=== PATIENT | female | born 1990 | race Caucasian/White ===

== ENCOUNTER 2021-01-20 06:04 | Inpatient (IN) | payer OTHER ==
[~2021-01-20] VITALS: Ht 160 cm; Wt 102.5 kg
--- NOTE | 2021-01-20 14:44 | PR ---
[facility] [address], [place] [address] Signed Progress Notes IP Datetime Report Generated by CPN: 01/20/2021 14:44 PROGRESS NOTES: [id number] Impression: Reassuring Heart Rate Procedures: Artificial ROM; Sterile Vag Exam Plan: Continue Present Management VITAL SIGNS: [id number] Vital Signs: Reviewed VS Notable Details: HTN--not severe EXAM: [id number] Dilatation: 4.0 Effacement: 75 Station: -2 Contractions: irregular MEMBRANES: [id number] Comments: Not much progress. If AROM does not increase her contractions, she may need pit augment. FETUS A: [id number] FHR Baseline: 130 Variability: Moderate 6-25bpm Accelerations: 15X15 Decelerations: None FHR Category: Category I Presentation: Vertex Comments on Fetus A: No evidence of metabolic acidosis FETUS B: [id number] Signing Physician: Eugenie Reyna MD Copies: ~ *Electronically Signed* 01/20/21 1444 EUGENIE REYNA MD PATIENT NAME: APRIL MINAYA PROGRESS NOTE DATE OF : 89 PHYSICIAN: EUGENIE REYNA MD RPT #: [id number] REPORT IS CONFIDENTIAL AND NOT TO BE RELEASED WITHOUT AUTHORIZATION
--- NOTE | 2021-01-20 19:29 | PR ---
[facility] [address] [facility] [place], [place] [address] Signed Progress Notes IP Datetime Report Generated by CPN: 01/20/2021 19:29 PROGRESS NOTES: [id number] Impression: Non-reassuring Heart Rate Procedures: Scalp Electrode; Sterile Vag Exam Plan: Continue Present Management VITAL SIGNS: [id number] Vital Signs: Reviewed VS Notable Details: HTN--not severe EXAM: [id number] Dilatation: 4.0 Effacement: 75 Station: -2 Contractions: irregular MEMBRANES: [id number] Comments: No progress but no regular contractions at this point. FHTs now recovering. Suspect decel related to hypotension which is now corrected. Will continue close observation and increase pitocin as needed. FETUS A: [id number] FHR Baseline: 130 Variability: Moderate 6-25bpm Accelerations: 15X15 Decelerations: None FHR Category: Category I Presentation: Vertex Comments on Fetus A: No evidence of metabolic acidosis FETUS B: [id number] Signing Physician: Eugenie Reyna MD Copies: ~ *Electronically Signed* 01/20/211928 EUGENIE REYNA MD PATIENT NAME: APRIL MINAYA PROGRESS NOTE DATE OF : 89 PHYSICIAN: EUGENIE REYNA MD RPT #: [id number] REPORT IS CONFIDENTIAL AND NOT TO BE RELEASED WITHOUT AUTHORIZATION
--- NOTE | 2021-01-20 21:36 | PR ---
[facility] [address] [facility] [place], [place] [address] Signed Progress Notes IP Datetime Report Generated by EJ: 01/20/2021 21:35 PROGRESS NOTES: [id number] Impression: Reassuring Heart Rate Procedures: Intrauterine Pressure Catheter; Sterile Vag Exam Plan: Continue Present Management Other Plans: increase pitocin as indicated VITAL SIGNS: [id number] Vital Signs: Reviewed VS Notable Details: HTN--not severe EXAM: [id number] Dilatation: 5.0 Effacement: 80 Station: -2 Contractions: irregular MEMBRANES: [id number] Comments: Very minimal change. Suspect contractions are still inadequate but difficult to monitor. Will place IUPC and increase pitocin as indicated. FETUS A: [id number] FHR Baseline: 130 Variability: Moderate 6-25bpm Accelerations: 15X15 Decelerations: None FHR Category: Category I Presentation: Vertex Comments on Fetus A: No evidence of metabolic acidosis FETUS B: [id number] Signing Physician: Eugenie Reyna MD Copies: ~ *Electronically Signed* 01/20/21 2135 EUGENIE REYNA MD PATIENT NAME: APRIL MINAYA PROGRESS NOTE DATE OF : 90 PHYSICIAN: EUGENIE REYNA MD RPT #: [id number] REPORT IS CONFIDENTIAL AND NOT TO BE RELEASED WITHOUT AUTHORIZATION
--- NOTE | 2021-01-21 00:21 | PR ---
[facility] [address] [facility] [place] [address] Signed Progress Notes IP Datetime Report Generated by EJ: 01/21/2021 00:21 PROGRESS NOTES: [id number] Impression: Normal Progression of Labor; Reassuring Heart Rate Procedures: Sterile Vag Exam Plan: Anesthesia Consult Other Plans: increase pitocin as indicated VITAL SIGNS: [id number] Vital Signs: Reviewed VS Notable Details: HTN--not severe EXAM: [id number] Dilatation: 10.0 Effacement: 100 Station: 0 Contractions: irregular MEMBRANES: [id number] Comments: Progressing well but very uncomfortable. Will redose epidural and continue. FETUS A: [id number] FHR Baseline: 130 Variability: Moderate 6-25bpm Accelerations: 15X15 Decelerations: None FHR Category: Category I Presentation: Vertex Comments on Fetus A: No evidence of metabolic acidosis FETUS B: [id number] Signing Physician: Eugenie Reyna MD Copies: ~ *Electronically Signed* 01/21/21 0021 EUGENIE REYNA MD PATIENT NAME: APRIL MINAYA PROGRESS NOTE DATE OF : 90 PHYSICIAN: EUGENIE REYNA MD RPT #: [id number] REPORT IS CONFIDENTIAL AND NOT TO BE RELEASED WITHOUT AUTHORIZATION
--- NOTE | 2021-01-22 09:59 | PR ---
[facility] [address] [facility] [place], [place] [address] Signed PP Progress Notes Datetime Report Generated by CPN: 01/22/2021 09:59 SUBJECTIVE: [id number] Pain: Within Normal Limits Vital Signs: [id number] Vital Signs: Reviewed Notable Details: intermittent HTN, not severe EXAM: Ongoing Cardiovascular: Not Done Respiratory: Not Done Abdomen/Uterus: Abnormal Lochia: Normal Vulva/Perineum: Not Done Breasts: Not Done CVA Tenderness: Not Done Extremities: Normal Incision: Not Applicable Progress: Normal Exam Comments: Fundus firm, NT @ U-2. IMPRESSION/PLAN/PROCEDURES: [id number] Impression: Normal Progression Plan: Discharge Procedures: None Progress Notes: Doing well. She is reeady for D/C. Signing Physician: Eugenie Reyna MD Copies: ~ *Electronically Signed* 01/22/21 0959 EUGENIE REYNA MD PATIENT NAME: APRIL MINAYA PROGRESS NOTE DATE OF : 90 PHYSICIAN: EUGENIE REYNA MD RPT #: [id number] REPORT IS CONFIDENTIAL AND NOT TO BE RELEASED WITHOUT AUTHORIZATION
== END 2021-01-22 11:30 | disposition home or self-care (01) | DRG 807 ==
LOC: FBC 06:04
PROVIDERS: ADMIT Obstetrics & Gynecology; ATTEND Obstetrics & Gynecology
PROC: 3E0P7VZ Introduction of Hormone into Female Reproductive, Via Natural or Artificial Opening (ICD-10-PCS; 2021-01-20)
PROC: 10907ZC Drainage of Amniotic Fluid, Therapeutic from Products of Conception, Via Natural or Artificial Opening (ICD-10-PCS; 2021-01-20)
PROC: 10H07YZ Insertion of Other Device into Products of Conception, Via Natural or Artificial Opening (ICD-10-PCS; 2021-01-20)
PROC: 00HU33Z Insertion of Infusion Device into Spinal Canal, Percutaneous Approach (ICD-10-PCS; 2021-01-20)
PROC: 3E0R3BZ Introduction of Anesthetic Agent into Spinal Canal, Percutaneous Approach (ICD-10-PCS; 2021-01-20)
PROC: 10E0XZZ Delivery of Products of Conception, External Approach (ICD-10-PCS; principal; 2021-01-21)
PROC: 0KQM0ZZ Repair Perineum Muscle, Open Approach (ICD-10-PCS; 2021-01-21)
PROC: 0UQMXZZ Repair Vulva, External Approach (ICD-10-PCS; 2021-01-21)
DX: O14.04 Mild to moderate pre-eclampsia, complicating childbirth (principal); Z37.0 Single live birth; Z3A.37 37 weeks gestation of pregnancy; O99.824 Streptococcus B carrier state complicating childbirth; O99.214 Obesity complicating childbirth; E66.9 Obesity, unspecified; O26.03 Excessive weight gain in pregnancy, third trimester; O69.81X0 Labor and delivery complicated by cord around neck, without compression, not applicable or unspecified; O70.1 Second degree perineal laceration during delivery; O71.82 Other specified trauma to perineum and vulva; Z88.0 Allergy status to penicillin
CPT/HCPCS: 01960; 36415; 82565; 82803; 84450; 84520; 84550; 85025; 85027; A9270; J0690; J1644; J2590; J2795; J3010; J7121

== ENCOUNTER 2021-03-26 08:21 | Emergency (ER) | payer OTHER ==
[~2021-03-26] VITALS: Ht 160 cm; Wt 90.7 kg
[2021-03-26] MEDS ORDERED: ONDANSETRON ODT8 MG PO (10:28)
[2021-03-26] MEDS ORDERED: HYDROCODON-ACE1 EA11 PO (10:28)
== END 2021-03-26 11:23 | disposition home or self-care (01) ==
LOC: ED 08:21
DX: N13.2 Hydronephrosis with renal and ureteral calculous obstruction (principal); Z87.891 Personal history of nicotine dependence; Z88.0 Allergy status to penicillin
CPT/HCPCS: 74176; 80053; 81001; 85025; 96374; 96375; 96376; 99284-25; A9270; J1170; J1885; J2405; J7030

== ENCOUNTER 2024-09-16 05:58 | Inpatient (IN) | payer OTHER ==
[~2024-09-16] VITALS: Ht 160 cm; Wt 105.2 kg
[~2024-09-16 05:58] MED LIST: HYDROCODON-ACE1 EA11 PO; ONDANSETRON ODT8 MG PO
[2024-09-16] MEDS ORDERED: CALCIUM CARBONATE 500 MG CHEW PO PRN ×2 (06:00→18:15)
[2024-09-16] MEDS ORDERED: MAGNESIUM HYDROXIDE/AL HYDROX 30 ML CUP PO PRN ×2 (06:00→18:15)
[2024-09-16] MEDS ORDERED: LACTATED RINGER'S 1,000 ML IV SCH (06:00)
[2024-09-16] MEDS ORDERED: miSOPROStoL 25 MCG TAB PV SCH (06:00)
[2024-09-16] MEDS ORDERED: OXYTOCIN/DEXTROSE 5% 20 UNITS/100 ML BAG IV SCH (06:45)
[2024-09-16 06:46] LABS: HEMATOCRIT 36.4 % (35.0-50.0); HEMOGLOBIN 12.7 g/dL (12.0-18.0); MCH 30.8 (27-36); MCHC 34.9 g/dl (30-36); MCV 88.1 fl (81-99); RBC 4.14 M/ul (4.3-5.7); RDW 13.6 (10.5-15.0)
[2024-09-16 07:07] LABS: AMPHETAMINES, URINE NEGATIVE (NEGATIVE); BARBITURATES, URINE NEGATIVE (NEGATIVE); BENZODIAZEPINE, URINE NEGATIVE (NEGATIVE); BUPRENORPHINE, URINE NEGATIVE (NEGATIVE); CANNABINOID, URINE NEGATIVE (NEGATIVE); COCAINE, URINE NEGATIVE (NEGATIVE); ECSTASY, URINE NEGATIVE (NEGATIVE); FENTANYL, URINE NEGATIVE (NEGATIVE); METHADONE, URINE NEGATIVE (NEGATIVE); OPIATES, URINE NEGATIVE (NEGATIVE); OXYCODONE, URINE NEGATIVE (NEGATIVE); PHENCYCLIDINE, URINE NEGATIVE (NEGATIVE)
[2024-09-16 07:15] LABS: ABO A; ANTIBODY SCREEN NEGATIVE; RH POSITIVE
[2024-09-16] MEDS ORDERED: ROPIVACAINE 0.2% 200 ML BAG ONE (10:44)
[2024-09-16] MEDS ORDERED: ePHEDrine KIT FOR FBC IV ONE (11:27)
[2024-09-16] MEDS ORDERED: ROPIVACAINE 0.2% 200 ML BAG EPIDURAL SCH (11:30)
[2024-09-16] MEDS ORDERED: ePHEDrine sulfate 5 MG/ML SYRINGE IV PRN (11:30)
[2024-09-16] MEDS ORDERED: LACTATED RINGER'S 2,000 ML IV ONE (11:30)
[2024-09-16] MEDS ORDERED: LACTATED RINGER'S 500 ML IV PRN (11:30)
[2024-09-16] MEDS ORDERED: OXYTOCIN/0.9 % SODIUM CHLORIDE 500 ML IV SCH ×2 (14:00→18:15)
[2024-09-16] MEDS ORDERED: dexmedeTOMIDine HCl 200 MCG/2 ML VIAL ONE (17:14)
[2024-09-16] MEDS ORDERED: Ropivacaine HCl 0.5% 30 ML VIAL ONE (17:14)
[2024-09-16] MEDS ORDERED: BENZOCAINE 60 ML AEROSOL TOP PRN (18:15)
[2024-09-16] MEDS ORDERED: MAGNESIUM HYDROXIDE 30 ML UDC PO PRN (18:15)
[2024-09-16] MEDS ORDERED: LIDOCAINE 2% VISCOUS 6 ML SYR TOP ONE ×2 (18:15)
[2024-09-16] MEDS ORDERED: WITCH HAZEL/GLYCERIN 1 EA PAD TOP PRN (18:15)
[2024-09-16] MEDS ORDERED: ACETAMINOPHEN 325 MG TAB PO PRN (18:15)
[2024-09-16] MEDS ORDERED: HYDROCORTISONE ACETATE 25 MG SUPP PR PRN (18:15)
[2024-09-16] MEDS ORDERED: IBUPROFEN 600 MG TAB PO PRN (18:15)
[2024-09-16] MEDS ORDERED: HYDROCODONE/ACETA 5/325 TAB PO PRN (18:15)
[2024-09-16] MEDS ORDERED: SENNOSIDES/DOCUSATE 1 EA TAB PO SCH (21:00)
[2024-09-17 05:37] LABS: HEMATOCRIT 33.1 % (35.0-50.0); HEMOGLOBIN 11.7 g/dL (12.0-18.0); MCH 31.2 (27-36); MCHC 35.2 g/dl (30-36); MCV 88.5 fl (81-99); RBC 3.74 M/ul (4.3-5.7); RDW 13.5 (10.5-15.0)
== END 2024-09-17 19:45 | disposition home or self-care (01) | DRG 807 ==
LOC: FBC 05:58
PROVIDERS: ADMIT Obstetrics & Gynecology; ATTEND Obstetrics & Gynecology
PROC: 10E0XZZ Delivery of Products of Conception, External Approach (ICD-10-PCS; principal; 2024-09-16)
PROC: 0KQM0ZZ Repair Perineum Muscle, Open Approach (ICD-10-PCS; 2024-09-16)
PROC: 10907ZC Drainage of Amniotic Fluid, Therapeutic from Products of Conception, Via Natural or Artificial Opening (ICD-10-PCS; 2024-09-16)
PROC: 3E0DXGC Introduction of Other Therapeutic Substance into Mouth and Pharynx, External Approach (ICD-10-PCS; 2024-09-16)
PROC: 3E0R3BZ Introduction of Anesthetic Agent into Spinal Canal, Percutaneous Approach (ICD-10-PCS; 2024-09-16)
PROC: 00HU33Z Insertion of Infusion Device into Spinal Canal, Percutaneous Approach (ICD-10-PCS; 2024-09-16)
DX: O69.1XX0 Labor and delivery complicated by cord around neck, with compression, not applicable or unspecified (principal); Z37.0 Single live birth; Z3A.39 39 weeks gestation of pregnancy; O70.1 Second degree perineal laceration during delivery; O99.214 Obesity complicating childbirth
CPT/HCPCS: 01960; 36415; 80307; 85027; 86850; 86900; 86901; A9270; J2590; J2795; J7121